=== PATIENT | female | born 1965 | race African-American/Black ===

== ENCOUNTER 2019-10-04 09:00 | Emergency (ER) | payer MEDICARE, MEDICAID ==
[~2019-10-04] VITALS: Ht 157.5 cm; Wt 116.3 kg
[~2019-10-04 09:00] MED LIST: HYDR-2679 PO; METF500T16 PO; [UNRECOGNIZED DRUG - REMARK]
[2019-10-04 09:06] VITALS: BP 136/105
[2019-10-04] MEDS ORDERED: DICL75TA PO (09:34)
--- NOTE | 2019-10-04 09:34 | PHYS DOC ---
Past Medical History Past Medical History: Diabetes-Type II, Hypertension, Other Additional Past Medical Histor: hiGG4 plasma Past Surgical History: Hysterectomy, Other Additional Past Surgical Histo: eye Smoking Status: Current Some Day Smoker Alcohol Use: Rarely Drug Use: None Adult General Chief Complaint Chief Complaint: SHOUDLER HPI HPI Patient is a 54 year old -[place] female with history of hypertension and asthma who presents secondary to complaint of left shoulder pain x3 days duration with some radiation from the periscapular region to the chest. Patient states that she has no inciting injury that she is aware of. Her pain is worse with movement and with lying on the left shoulder. She also reports similar symptoms 1 month ago after lifting heavy objects. This seemed to get better but did not completely resolved. She has tried home Flexeril and hydrocodone without relief. She denies shortness of breath. Pain is mild and worse with movement. Review of Systems Review of Systems All other systems were reviewed and found to be within normal limits, except as documented in this note. Allergies Allergies Allergies Coded Allergies Type Severity Reaction Last Updated Verified No Known Drug Allergies 07/28/14 No Physical Exam Physical Exam Constitutional: Well developed, well nourished, no acute distress, non-toxic appearance. [] HENT: Normocephalic, atraumatic, bilateral external ears normal, oropharynx moist, no oral exudates, nose normal. [] Eyes: PERRLA, EOMI, conjunctiva normal, no discharge. [] Neck: Normal range of motion, no tenderness, supple, no stridor. [] Cardiovascular:Heart rate regular rhythm, no murmur [] Lungs & Thorax: Bilateral breath sounds clear to auscultation [] Skin: Warm, dry, no erythema, no rash. [] Back: Tenderness palpation around the left periscapular region Extremities: Tenderness around the left shoulder diffusely but more so in the back., no cyanosis, no clubbing, ROM intact, no edema. [] Neurologic: Alert and oriented X 3, normal motor function, normal sensory function, no focal deficits noted. [] EKG EKG EKG shows a sinus rhythm with a heart rate of 84, normal intervals and no ST changes. [] Radiology/Procedures Radiology/Procedures [] Course & Med Decision Making Course & Med Decision Making Pertinent Labs and Imaging studies reviewed. (See chart for details) This patient is seen for ongoing left shoulder pain. Her EKG is unremarkable. Examination and history are consistent with likely muscle strain or rotator cuff injury. I will start the patient on an anti-inflammatory and she is to continue to take her home muscle relaxer and pain medication. She is also advised to follow-up with her primary care physician for possible MRI if symptoms do not resolve. Dragon Disclaimer Dragon Disclaimer This electronic medical record was generated, in whole or in part, using a voice recognition dictation system. Departure Departure Impression: Primary Impression: Left shoulder pain Disposition: HOME, SELF-CARE Condition: STABLE Referrals: RADHA LAGUNAS APRN (PCP) Please follow up for ongoing symptoms. Discuss possible MRI. Patient Instructions: Shoulder Pain Scripts Diclofenac Sodium (DICLOFENAC SODIUM) 75 Mg Tablet.dr 1 TAB PO BID for 10 Days, #20 TAB 1 Refill Prov: REED REED DO 10/04/19 REED REED DO Oct 04, 2019 09:34
--- NOTE | 2019-10-04 09:59 | EKG ---
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
== END 2019-10-04 09:39 | disposition home or self-care (01) ==
LOC: ER 09:00
DX: M25.512 Pain in left shoulder (principal); E11.9 Type 2 diabetes mellitus without complications; J45.909 Unspecified asthma, uncomplicated; I10 Essential (primary) hypertension; F17.200 Nicotine dependence, unspecified, uncomplicated; Z90.710 Acquired absence of both cervix and uterus; Z98.890 Other specified postprocedural states
CPT/HCPCS: 93005; 99283

== ENCOUNTER 2021-08-20 17:50 | Observation (INO) | payer MEDICAID, MEDICARE ==
[~2021-08-20] VITALS: Ht 157.5 cm; Wt 115.1 kg
[~2021-08-20 17:50] MED LIST changes: +DICL75TA PO
--- NOTE | 2021-08-20 18:12 | PHYS DOC ---
Past Medical History Past Medical History: Diabetes-Type II, Hypertension, Other Additional Past Medical Histor: hiGG4 plasma,SLEEP APNEA,CHRONIC BACK PAIN Past Surgical History: , Hysterectomy, Other Additional Past Surgical Histo: eye Smoking Status: Never Smoker Alcohol Use: Rarely Drug Use: None General Adult EDM: Chief Complaint: CHEST PAIN HPI: HPI: Patient is a 56-year-old female who presents to the emergency department today for left-sided chest pain that has been intermittent x1 week. Patient reports that the chest pain radiates to her arm and causes arm numbness occasionally. She rates her pain 8 out of 10. Chest pain is worse with deep inspiration and movement. Patient reports that she has had a nonproductive cough. She has a low-grade fever of 100. she is unable to describe the pain but states that it is "strong". No treatment prior to arrival. Patient is also reporting chronic right low back pain that radiates into her buttock. Patient reports that she has a bulging disc on the right side. She denies any injuries or falls, shortness of breath, nausea, vomiting, sick exposures. Review of Systems: Review of Systems: Constitutional: negative unless reported in HPI Eyes: negative unless reported in HPI HENT: negative unless reported in HPI Respiratory: negative unless reported in HPI Cardiovascular: negative unless reported in HPI GI: negative unless reported in HPI : negative unless reported in HPI Musculoskeletal: negative unless reported in HPI Integument: negative unless reported in HPI Neurologic: negative unless reported in HPI Endocrine: negative unless reported in HPI Lymphatic: negative unless reported in HPI Psychiatric: negative unless reported in HPI Heart Score: C/O Chest Pain: Yes HEART Score for Chest Pain: HEART Score for Chest Pain Response (Comments) Value History Slighlty/Non-Suspicious 0 ECG Nonspecific Repolarizatio 1 Age >45 - < 65 1 Risk Factors >3 Risk Factors or Hx CAD 2 Troponin < Normal Limit 0 Total 4 Risk Factors: Risk Factors: DM, Current or recent (<one month) smoker, HTN, HLP, family history of CAD, obesity. Risk Scores: Score 0 - 3: 2.5% MACE over next 6 weeks - Discharge Home Score 4 - 6: 20.3% MACE over next 6 weeks - Admit for Clinical Observation Score 7 - 10: 72.7% MACE over next 6 weeks - Early Invasive Strategies Allergies: Allergies: Allergies Uncoded Allergies Type Severity Reaction Last Updated Verified FLU VACCINE Allergy Unknown 08/20/21 Physical Exam: PE: Constitutional: Well developed, well nourished, no acute distress, non-toxic appearance. [] HENT: Normocephalic, atraumatic, bilateral external ears normal, oropharynx moist, no oral exudates, nose normal. [] Eyes: PERRL, EOMI, conjunctiva normal, no discharge. [] Neck: Normal range of motion, no stridor Cardiovascular:Heart rate regular rhythm, no murmur, upper left chest pain with palpation proximal to left shoulder [] Lungs & Thorax: Bilateral breath sounds clear to auscultation [] Abdomen: Bowel sounds normal, soft, no tenderness, no masses, obese, no pulsatile masses. [] Skin: Warm, dry, no erythema, no rash. [] Back: Normal range of motion, right lumbar paraspinal tenderness with palpation, positive right straight leg raise Extremities: No tenderness, no cyanosis, no clubbing, ROM intact, no edema. [] Neurologic: Alert and oriented X 3, normal motor function, normal sensory function, no focal deficits noted. [] Psychologic: Affect normal, judgement normal, mood normal. [] Current Patient Data: Labs: Laboratory Tests Test 08/20/21 18:05 08/20/21 18:30 White Blood Count 6.9 x10^3/uL Red Blood Count 4.69 x10^6/uL Hemoglobin 13.1 g/dL Hematocrit 40.1 % Mean Corpuscular Volume 86 fL Mean Corpuscular Hemoglobin 28 pg Mean Corpuscular Hemoglobin Concent 33 g/dL Red Cell Distribution Width 14.2 % Platelet Count 254 x10^3/uL Neutrophils (%) (Auto) 46 % Lymphocytes (%) (Auto) 46 % Monocytes (%) (Auto) 6 % Eosinophils (%) (Auto) 2 % Basophils (%) (Auto) 1 % Neutrophils # (Auto) 3.2 x10^3/uL Lymphocytes # (Auto) 3.2 x10^3/uL Monocytes # (Auto) 0.4 x10^3/uL Eosinophils # (Auto) 0.1 x10^3/uL Basophils # (Auto) 0.0 x10^3/uL Sodium Level 145 mmol/L Potassium Level 4.5 mmol/L Chloride Level 104 mmol/L Carbon Dioxide Level 28 mmol/L Anion Gap 13 Blood Urea Nitrogen 8 mg/dL Creatinine 0.6 mg/dL Estimated GFR (Cockcroft-Gault) 124.7 BUN/Creatinine Ratio 13 Glucose Level 134 mg/dL Calcium Level 9.4 mg/dL Total Bilirubin 0.4 mg/dL Aspartate Amino Transf (AST/SGOT) 16 U/L Alanine Aminotransferase (ALT/SGPT) 32 U/L Alkaline Phosphatase 113 U/L Troponin I High Sensitivity 4 ng/L Total Protein 8.0 g/dL Albumin 3.7 g/dL Albumin/Globulin Ratio 0.9 Influenza Type A Antigen Negative Influenza Type B Antigen Negative SARS-CoV-2 Antigen (Rapid) Negative Current Medications Medications (Trade) Dose Ordered Sig/Teo Route PRN Reason Start Time Stop Time Status Last Admin Dose Admin Aspirin (Aspirin Chewable) 324 mg 1X ONCE PO 08/20/21 18:15 08/20/21 18:16 DC 08/20/21 18:20 Morphine Sulfate (Morphine Sulfate) 2 mg 1X ONCE IVP 08/20/21 18:15 08/20/21 18:16 DC 08/20/21 18:18 Sodium Chloride 1,000 ml @ 1,000 mls/hr 1X ONCE IV 08/20/21 18:30 08/20/21 19:29 08/20/21 18:27 Morphine Sulfate (Morphine Sulfate) 4 mg 1X ONCE IVP 08/20/21 19:15 08/20/21 19:16 EKG: EKG: EKG performed by ER staff at 1757 shows sinus rhythm with a rate of 92, QTC of 423, no STEMI read by Dr. Cartagena. [] Radiology/Procedures: Radiology/Procedures: []PROCEDURE: PORTABLE CHEST 1V Exam: Chest one view INDICATION: Chest pain TECHNIQUE: Frontal view of the chest Comparisons: None FINDINGS: The cardiomediastinal silhouette and pulmonary vessels are within normal limits. The lung and pleural spaces are clear. IMPRESSION: No acute cardiopulmonary process. Electronically signed by: Jony Charles MD (08/20/2021 6:56 PM) [facility] DICTATED and SIGNED BY: JONY CHARLES MD DATE: 08/20/21 [id number] 0 PROCEDURE: CT ANGIOGRAPHY CHEST Examination: CT angiography chest with IV contrast HISTORY: History of chest pain, fever COMPARISON: None available TECHNIQUE: Axial CT angiographic images of chest were performed with IV contrast. Coronal and sagittal 3-D MIP reformats are performed Exposure: One or more of the following individualized dose reduction techniques were utilized for this examination: 1. Automated exposure control 2. Adjustment of the mA and/or kV according to patient size 3. Use of iterative reconstruction technique FINDINGS: The visualized central airways are patent. The ascending aorta measures 2.8 cm in transverse dimension. There is not enough contrast within the pulmonary artery and its branches for evaluation of pulmonary embolism. Mild aortic atherosclerosis. Mild bibasilar lung atelectasis. The visualized liver, spleen, adrenals grossly appears unremarkable Moderate degenerative changes thoracic spine. IMPRESSION: 1. Nondiagnostic examination for evaluation of pulmonary embolism as there is not enough contrast within the pulmonary artery and its branches. 2. Mild bibasilar lung atelectasis. Electronically signed by: Vern Rees MD (08/20/2021 7:59 PM) [id number] DICTATED and SIGNED BY: VERN REES MD DATE: 08/20/[id number] 0 ROCEDURE: CT ANGIOGRAPHY CHEST CTA Chest with contrast: 10:42 PM Clinical History: Chest pain and fever repeat study due to poor timing of contrast. Axial helical images of the chest were obtained after the administration of 75 cc of IV Omnipaque 350 and timed appropriately for a pulmonary arterial study. Conventional axial reconstruction was performed in addition to coronal, sagittal and bilateral oblique MIP (maximum intensity projection). This study was ordered to detect possible pulmonary embolism. COMPARISON: 7:32 PM There are no filling defects to suggest pulmonary embolism. The more peripheral subsegmental pulmonary arteries are not well opacified limiting our sensitivity for small peripheral pulmonary emboli. The lungs and pleural margins are clear. There is no mediastinal or hilar lymphadenopathy. The thoracic aorta appears normal. Impression: 1. No evidence of pulmonary embolism. 2. No significant findings. PQRS Compliance Statement: One or more of the following individualized dose reduction techniques were utilized for this examination: 1. Automated exposure control 2. Adjustment of the mA and/or kV according to patient size 3. Use of iterative reconstruction technique Electronically signed by: Micaela Cabrera III, MD (08/20/2021 11:08 PM) [facility] DICTATED and SIGNED BY: MICAELA CABRERA III, MD DATE: 08/20/[id number] 0 Course & Med Decision Making: Course & Med Decision Making Pertinent Labs and Imaging studies reviewed. (See chart for details) [] Patient presents to the emergency department for intermittent left-sided ch est pain proximal to her shoulder x1 week. Patient does have a cough and a low- grade fever. She reports that she has an appointment with her doctor because they believe that this pain that she is experiencing in her arm is due to her neck pain. Patient is also reporting chronic right low back pain that radiates into her buttock. Patient reports she has a history of a bulging disc. Work-up in the ER consisted of blood work, EKG, chest x-ray. Patient treated with aspirin, nitro and pain medication. Fever treated with tylenol and she was given IV fluids. Patient's vital signs are stable. 1900: Following pain medication in the emergency department, patient reports that her l. sided chest pain and arm pain has resolved. Blood work unremarkable, no elevation in troponin. EKG shows nonspecific changes. CXR shows no acute findings. Rapid influenza and covid test negative. I discussed patients case with supervising physician and she advised a CTA of chest to rule out PE due to chest pain and low grade fever as well as tachycardia. Patients heart score is 4 and will require admission to the hospital for serial troponins and cardiology consultation. CTA was non diagnostic therefore, patient was hydrated and it will be repeated. Supervising physician advised for treatment for PE with lovenox. I discussed patients findings with Dr. Durbin and he will admit the patient under his services for chest pain obs. I discussed these findings with patient and she is agreeable to care plan. ER bridge orders placed 2032. Maria Luisa Disclaimer: Maria Luisa Disclaimer: This electronic medical record was generated, in whole or in part, using a voice recognition dictation system. Departure Departure Impression: Primary Impression: Chest pain Qualified Codes: R07.9 - Chest pain, unspecified Disposition: ADMITTED INPATIENT Admitting Physician: DELORIS Condition: STABLE Referrals: RADHA LAGUNAS APRN (PCP) DAISY MCCLELLADN APRN Aug 20, 2021 18:12
[2021-08-20] MEDS ORDERED: ASPIRIN CHEWABLE 81 MG TABLET. PO ONE (18:15)
[2021-08-20] MEDS ORDERED: MORPHINE SULFATE 2 MG/ML INJ. IVP ONE (18:15)
[2021-08-20 18:19] LABS: BASO % 1 % (0-3); EOS # 0.1 x10^3/uL (0.0-0.7); EOS % 2 % (0-3); HEMATOCRIT 40.1 % (36.0-47.0); HEMOGLOBIN 13.1 g/dL (12.0-15.5); LYMPH # 3.2 x10^3/uL (1.0-4.8); LYMPH % 46 % (24-48); MEAN CORPUSCULAR HEMOGLOBIN 28 pg (25-35); MEAN CORPUSCULAR HGB CONC 33 g/dL (31-37); MEAN CORPUSCULAR VOLUME 86 fL (79-100); MONO # 0.4 x10^3/uL (0.0-1.1); MONO % 6 % (0-9); NEUT # 3.2 x10^3/uL (1.8-7.7); NEUT % 46 % (31-73); PLATELET COUNT 254 x10^3/uL (140-400); RED BLOOD COUNT 4.69 x10^6/uL (3.50-5.40); RED CELL DISTRIBUTION WIDTH 14.2 % (11.5-14.5); WHITE BLOOD COUNT 6.9 x10^3/uL (4.0-11.0)
[2021-08-20 18:29] LABS: CALCIUM 9.4 mg/dL (8.5-10.1); CREATININE 0.6 mg/dL (0.6-1.0); GFR 124.7; POTASSIUM 4.5 mmol/L (3.5-5.1)
[2021-08-20] MEDS ORDERED: IV NORMAL SALINE 1000ML BAG 1,000 ML IV ONE ×2 (18:30→20:30)
[2021-08-20 18:35] LABS: ALBUMIN 3.7 g/dL (3.4-5.0); ALBUMIN/GLOBULIN RATIO 0.9 (1.0-1.7); TOTAL BILIRUBIN 0.4 mg/dL (0.2-1.0)
[2021-08-20 18:54] LABS: INFLUENZA A PATIENT NEGATIVE (NEGATIVE); INFLUENZA B PATIENT NEGATIVE (NEGATIVE)
--- NOTE | 2021-08-20 18:59 | RAD ---
Exam: Chest one view INDICATION: Chest pain TECHNIQUE: Frontal view of the chest Comparisons: None FINDINGS: The cardiomediastinal silhouette and pulmonary vessels are within normal limits. The lung and pleural spaces are clear. IMPRESSION: No acute cardiopulmonary process. Electronically signed by: Jony Villaseñor MD (08/20/2021 6:56 PM) [facility]
[2021-08-20] MEDS ORDERED: IOHEXOL 350 MG/ML 100 ML VIAL. IV ONE ×2 (19:15→23:00)
[2021-08-20] MEDS ORDERED: ACETAMINOPHEN 500 MG TABLET PO ONE (19:15)
[2021-08-20] MEDS ORDERED: NITROGLYCERIN SUBLINGUAL 0.4 MG BOTTLE OF 25. SL PRN (19:15)
[2021-08-20] MEDS ORDERED: MORPHINE SULFATE 4 MG/ML INJ. IVP ONE (19:15)
[2021-08-20] MEDS ORDERED: CONTRAST GIVEN. MC PRN (19:30)
--- NOTE | 2021-08-20 20:01 | RAD ---
Examination: CT angiography chest with IV contrast HISTORY: History of chest pain, fever COMPARISON: None available TECHNIQUE: Axial CT angiographic images of chest were performed with IV contrast. Coronal and sagitta l 3-D MIP reformats are performed Exposure: One or more of the following individualized dose reduction techniques were utilized for thi s examination: 1. Automated exposure control 2. Adjustment of the mA and/or kV according to patient size 3. Use of iterative reconstruction technique FINDINGS: The visualized central airways are patent. The ascending aorta measures 2.8 cm in transverse dimensio n. There is not enough contrast within the pulmonary artery and its branches for evaluation of pulmon farzad embolism. Mild aortic atherosclerosis. Mild bibasilar lung atelectasis. The visualized liver, spl een, adrenals grossly appears unremarkable Moderate degenerative changes thoracic spine. IMPRESSION: 1. Nondiagnostic examination for evaluation of pulmonary embolism as there is not enough contrast wi thin the pulmonary artery and its branches. 2. Mild bibasilar lung atelectasis. Electronically signed by: Vern Rees MD (08/20/2021 7:59 PM) [id number]
[2021-08-20] MEDS ORDERED: MORPHINE SULFATE 2 MG/ML INJ. IVP PRN (20:45)
[2021-08-20] MEDS ORDERED: ANTI-COAG MONITOR BY PHARMACY. MC PRN (22:00)
[2021-08-20 23:00] VITALS: BP 154/93
--- NOTE | 2021-08-20 23:10 | RAD ---
CTA Chest with contrast: 10:42 PM Clinical History: Chest pain and fever repeat study due to poor timing of contrast. Axial helical images of the chest were obtained after the administration of 75 cc of IV Omnipaque 350 and timed appropriately for a pulmonary arterial study. Conventional axial reconstruction was perfo rmed in addition to coronal, sagittal and bilateral oblique MIP (maximum intensity projection). This study was ordered to detect possible pulmonary embolism. COMPARISON: 7:32 PM There are no filling defects to suggest pulmonary embolism. The more peripheral subsegmental pulmonary arteries are not well opacified limiting our sensitivity f or small peripheral pulmonary emboli. The lungs and pleural margins are clear. There is no mediastinal or hilar lymphadenopathy. The thoracic aorta appears normal. Impression: 1. No evidence of pulmonary embolism. 2. No significant findings. PQRS Compliance Statement: One or more of the following individualized dose reduction techniques were utilized for this examinat ion: 1. Automated exposure control 2. Adjustment of the mA and/or kV according to patient size 3. Use of iterative reconstruction technique Electronically signed by: Colt Peña III, MD (08/20/2021 11:08 PM) [facility]
--- NOTE | 2021-08-21 00:28 | NUR ---
received from the ER. she has been having chest pain that radiates to her left arm down to he fingers that causes her hand and am to go numb.This pain awakens her at night. no shortness of breath. she does have a history of neck and back pain. she states that she has "2 disc out in her back" that causes numbness down her right leg. she uses a cane to ambulate.
[2021-08-21 01:00] LABS: BASO % 0 % (0-3); EOS # 0.1 x10^3/uL (0.0-0.7); EOS % 2 % (0-3); HEMATOCRIT 35.9 % (36.0-47.0); HEMOGLOBIN 11.3 g/dL (12.0-15.5); LYMPH # 3.6 x10^3/uL (1.0-4.8); LYMPH % 49 % (24-48); MEAN CORPUSCULAR HEMOGLOBIN 27 pg (25-35); MEAN CORPUSCULAR HGB CONC 32 g/dL (31-37); MEAN CORPUSCULAR VOLUME 86 fL (79-100); MONO # 0.4 x10^3/uL (0.0-1.1); MONO % 5 % (0-9); NEUT # 3.3 x10^3/uL (1.8-7.7); NEUT % 44 % (31-73); PLATELET COUNT 220 x10^3/uL (140-400); RED BLOOD COUNT 4.15 x10^6/uL (3.50-5.40); RED CELL DISTRIBUTION WIDTH 14.3 % (11.5-14.5); WHITE BLOOD COUNT 7.5 x10^3/uL (4.0-11.0)
[2021-08-21 01:27] LABS: ALBUMIN 3.1 g/dL (3.4-5.0); ALBUMIN/GLOBULIN RATIO 0.8 (1.0-1.7); CALCIUM 8.2 mg/dL (8.5-10.1); CREATININE 0.7 mg/dL (0.6-1.0); GFR 104.4; POTASSIUM 3.9 mmol/L (3.5-5.1); TOTAL BILIRUBIN 0.3 mg/dL (0.2-1.0)
--- NOTE | 2021-08-21 02:32 | EKG ---
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
[2021-08-21 03:00] VITALS: BP 126/72
[2021-08-21 07:00] VITALS: BP 116/83
[2021-08-21] MEDS ORDERED: DOCUSATE SODIUM 100 MG CAPSULE. PO PRN (09:15)
[2021-08-21] MEDS ORDERED: PROCHLORPERAZINE 10 MG/2 ML VIAL. IV PRN (09:15)
[2021-08-21] MEDS ORDERED: ONDANSETRON PF 4 MG/2 ML VIAL. IVP PRN (09:15)
[2021-08-21] MEDS ORDERED: ZOLPIDEM 5 MG TABLET. PO PRN (09:15)
[2021-08-21] MEDS ORDERED: ENOXAPARIN 40 MG/0.4 ML SYRINGE. SQ SCH (09:15)
[2021-08-21] MEDS ORDERED: LORazepam 0.5 MG TABLET PO PRN (09:15)
[2021-08-21] MEDS ORDERED: DEXTROSE 50% 25 GM / 50ML DISP.SYRIN. IV PRN (09:15)
[2021-08-21] MEDS ORDERED: SENNOSIDES 8.6 MG TABLET PO PRN (09:15)
[2021-08-21] MEDS ORDERED: diphenhydrAMINE HCL 25 MG CAPSULE PO PRN ×2 (09:15)
[2021-08-21] MEDS ORDERED: diphenhydrAMINE 50 MG/ML VIAL IVP PRN (09:15)
[2021-08-21] MEDS ORDERED: ACETAMINOPHEN 325 MG TABLET. PO PRN (09:15)
--- NOTE | 2021-08-21 09:16 | PDOC1 ---
History and Physical Date of Service: DOS: DATE: 08/21/21 TIME: 09:08 Chief Complaint: Chief Complain: Chest pain History of Present Illness: HPI: History obtained from discussion with the ED physician and chart review: 56-year-old female who presents to the emergency department today for left-sided chest pain that has been intermittent x1 week. Patient reports that the chest pain radiates to her arm and causes arm numbness occasionally. She rates her pain 8 out of 10. Chest pain is worse with deep inspiration and movement. Patient reports that she has had a nonproductive cough. She has a low-grade fever of 100. she is unable to describe the pain but states that it is "strong". No treatment prior to arrival. Patient is also reporting chronic right low back pain that radiates into her buttock. Patient reports that she has a bulging disc on the right side. She denies any injuries or falls, shortness of breath, nausea, vomiting, sick exposures. Past Medical/Surgical History: PMH/PSH: Past Medical History: Diabetes-Type II, Hypertension, IgG4 plasma,SLEEP APNEA,CHRONIC BACK PAIN Past Surgical History: , Hysterectomy, eye Allergies: Allergies: Coded Allergies: Influenza Virus Vaccines (Verified Allergy, Intermediate, 08/20/21) Family History: Family History: Reviewed with no relevant findings in the chart Social History: Social History: Smoking Status: Never Smoker Alcohol Use: Rarely Drug Use: None Current Medications: Current Medications Current Medications Aspirin (Aspirin Chewable) 324 mg 1X ONCE PO Last administered on 08/20/21at 18:20; Start 08/20/21 at 18:15; Stop 08/20/21 at 18:16; Status DC Morphine Sulfate (Morphine Sulfate) 2 mg 1X ONCE IVP Last administered on 08/20/21at 18:18; Start 08/20/21 at 18:15; Stop 08/20/21 at 18:16; Status DC Sodium Chloride 1,000 ml @ 1,000 mls/hr 1X ONCE IV Last administered on 08/20/21at 18:27; Start 08/20/21 at 18:30; Stop 08/20/21 at 19:29; Status DC Morphine Sulfate (Morphine Sulfate) 4 mg 1X ONCE IVP Last administered on 08/20/21at 19:14; Start 08/20/21 at 19:15; Stop 08/20/21 at 19:16; Status DC Nitroglycerin (Nitrostat) 0.4 mg PRN Q5MIN PRN SL CHEST PAIN; Start 08/20/21 at 19:15 Acetaminophen (Tylenol) 1,000 mg 1X ONCE PO ; Start 08/20/21 at 19:15; Stop 08/20/21 at 19:19; Status DC Iohexol (Omnipaque 350 Mg/ml) 100 ml 1X ONCE IV Last administered on 08/20/21at 19:42; Start 08/20/21 at 19:15; Stop 08/20/21 at 19:19; Status DC Info (CONTRAST GIVEN -- Rx MONITORING) 1 each PRN DAILY PRN MC SEE COMMENTS; Start 08/20/21 at 19:30; Stop 08/22/21 at 19:29 Sodium Chloride 1,000 ml @ 1,000 mls/hr 1X ONCE IV Last administered on 08/20/21at 21:11; Start 08/20/21 at 20:30; Stop 08/20/21 at 21:29; Status DC Morphine Sulfate (Morphine Sulfate) 2 mg PRN Q2HR PRN IVP PAIN; Start 08/20/21 at 20:45; Stop 08/21/21 at 20:44 Enoxaparin Sodium (Lovenox Per Pharmacy Prophylaxis Dosing) 1 each PRN DAILY PRN MC SEE COMMENTS; Start 08/20/21 at 21:45; Status UNV Enoxaparin Sodium (Lovenox Per Pharmacy Treatment Dosing) 1 each PRN DAILY PRN MC SEE COMMENTS; Start 08/20/21 at 21:45 Enoxaparin Sodium (Lovenox 120mg Syringe) 110 mg Q12HR SQ Last administered on 08/20/21at 22:32; Start 08/20/21 at 22:00 Info (Anti-Coagulation Monitoring By Pharmacy) 1 each PRN DAILY PRN MC PER PROTOCOL Last administered on 08/21/21at 01:46; Start 08/20/21 at 22:00 Iohexol (Omnipaque 350 Mg/ml) 75 ml 1X ONCE IV Last administered on 08/20/21at 22:47; Start 08/20/21 at 23:00; Stop 08/20/21 at 23:01; Status DC Active Scripts Active Diclofenac Sodium 75 Mg Tablet.dr 1 Tab PO BID 10 Days Reported [water pill "F"] Metformin Hcl 500 Mg Tablet 1 Tab PO BID Lortab 7.5-325 mg Tablet (Hydrocodone/Acetaminophen) 1 Each Tablet 1 Tab PO PRN Q6HRS PRN ROS: Review of Systems Review of System REVIEW OF SYSTEMS: GENERAL: Denies weakness SKIN: No bruising, hair changes or rashes. EYES: No blurred, double or loss of vision. NOSE AND THROAT: No history of nosebleeds, hoarseness or sore throat. HEART: No history of palpitations, chest pain or shortness of breath on exertion. LUNGS: Denies cough, hemoptysis, wheezing or shortness of breath. GASTROINTESTINAL: Denies changes in appetite, nausea, vomiting, diarrhea or constipation. GENITOURINARY: No history of frequency, urgency, hesitancy or nocturia. NEUROLOGIC: Denies history of numbness, tingling, or tremor. PSYCHIATRIC: No history of panic, anxiety or depression. ENDOCRINE: No history of heat or cold intolerance, polyuria or polydipsia. EXTREMITIES: Denies joint pain, pain on walking or stiffness. Physical Exam: Vital Signs: Vital Signs Date Time Temp Pulse Resp B/P (MAP) Pulse Ox O2 Delivery O2 Flow Rate FiO2 08/21/21 03:00 98.2 82 18 126/72 (90) 96 Room Air 98.2 Physcial Exam: General: Well developed, well nourished, no acute distress, well appearing HEENT: Pupils equally round and reactive to light, EOMI, no discharge, normal conjunctiva Neck: Supple, no nuchal rigidity, no JVD, trachea midline, no tenderness Cardiac: RRR, no murmurs, no gallops, no rubs Chest/Lungs: Tender to palpation in the left upper chest Abdomen: soft, non-distended, no guarding, no peritoneal signs, non-tender Back: No tenderness Extremities: no edema, pulses intact, non-tender,capillary refill <3 sec bilateral upper and lower extremities, Neuro: Alert and oriented x 4, no focal deficits, normal speech Labs: Labs: Laboratory Tests Test 08/20/21 18:05 08/20/21 18:30 08/20/21 21:32 08/21/21 00:30 White Blood Count 6.9 x10^3/uL (4.0-11.0) 7.5 x10^3/uL (4.0-11.0) Red Blood Count 4.69 x10^6/uL (3.50-5.40) 4.15 x10^6/uL (3.50-5.40) Hemoglobin 13.1 g/dL (12.0-15.5) 11.3 g/dL (12.0-15.5) Hematocrit 40.1 % (36.0-47.0) 35.9 % (36.0-47.0) Mean Corpuscular Volume 86 fL (79-100) 86 fL (79-100) Mean Corpuscular Hemoglobin 28 pg (25-35) 27 pg (25-35) Mean Corpuscular Hemoglobin Concent 33 g/dL (31-37) 32 g/dL (31-37) Red Cell Distribution Width 14.2 % (11.5-14.5) 14.3 % (11.5-14.5) Platelet Count 254 x10^3/uL (140-400) 220 x10^3/uL (140-400) Neutrophils (%) (Auto) 46 % (31-73) 44 % (31-73) Lymphocytes (%) (Auto) 46 % (24-48) 49 % (24-48) Monocytes (%) (Auto) 6 % (0-9) 5 % (0-9) Eosinophils (%) (Auto) 2 % (0-3) 2 % (0-3) Basophils (%) (Auto) 1 % (0-3) 0 % (0-3) Neutrophils # (Auto) 3.2 x10^3/uL (1.8-7.7) 3.3 x10^3/uL (1.8-7.7) Lymphocytes # (Auto) 3.2 x10^3/uL (1.0-4.8) 3.6 x10^3/uL (1.0-4.8) Monocytes # (Auto) 0.4 x10^3/uL (0.0-1.1) 0.4 x10^3/uL (0.0-1.1) Eosinophils # (Auto) 0.1 x10^3/uL (0.0-0.7) 0.1 x10^3/uL (0.0-0.7) Basophils # (Auto) 0.0 x10^3/uL (0.0-0.2) 0.0 x10^3/uL (0.0-0.2) Sodium Level 145 mmol/L (136-145) 143 mmol/L (136-145) Potassium Level 4.5 mmol/L (3.5-5.1) 3.9 mmol/L (3.5-5.1) Chloride Level 104 mmol/L (98-107) 105 mmol/L (98-107) Carbon Dioxide Level 28 mmol/L (21-32) 27 mmol/L (21-32) Anion Gap 13 (6-14) 11 (6-14) Blood Urea Nitrogen 8 mg/dL (7-20) 8 mg/dL (7-20) Creatinine 0.6 mg/dL (0.6-1.0) 0.7 mg/dL (0.6-1.0) Estimated GFR (Cockcroft-Gault) 124.7 104.4 BUN/Creatinine Ratio 13 (6-20) 11 (6-20) Glucose Level 134 mg/dL (70-99) 184 mg/dL (70-99) Calcium Level 9.4 mg/dL (8.5-10.1) 8.2 mg/dL (8.5-10.1) Total Bilirubin 0.4 mg/dL (0.2-1.0) 0.3 mg/dL (0.2-1.0) Aspartate Amino Transf (AST/SGOT) 16 U/L (15-37) 7 U/L (15-37) Alanine Aminotransferase (ALT/SGPT) 32 U/L (14-59) 25 U/L (14-59) Alkaline Phosphatase 113 U/L (46-116) 96 U/L (46-116) Troponin I High Sensitivity 4 ng/L (4-50) 4 ng/L (4-50) 4 ng/L (4-50) Total Protein 8.0 g/dL (6.4-8.2) 7.0 g/dL (6.4-8.2) Albumin 3.7 g/dL (3.4-5.0) 3.1 g/dL (3.4-5.0) Albumin/Globulin Ratio 0.9 (1.0-1.7) 0.8 (1.0-1.7) Influenza Type A Antigen Negative (NEGATIVE) Influenza Type B Antigen Negative (NEGATIVE) SARS-CoV-2 Antigen (Rapid) Negative (NEGATIVE) Test 08/21/21 08:51 Glucose (Fingerstick) 89 mg/dL (70-99) Laboratory Tests Test 08/20/21 18:05 08/20/21 18:30 08/20/21 21:32 08/21/21 00:30 White Blood Count 6.9 x10^3/uL (4.0-11.0) 7.5 x10^3/uL (4.0-11.0) Red Blood Count 4.69 x10^6/uL (3.50-5.40) 4.15 x10^6/uL (3.50-5.40) Hemoglobin 13.1 g/dL (12.0-15.5) 11.3 g/dL (12.0-15.5) Hematocrit 40.1 % (36.0-47.0) 35.9 % (36.0-47.0) Mean Corpuscular Volume 86 fL (79-100) 86 fL (79-100) Mean Corpuscular Hemoglobin 28 pg (25-35) 27 pg (25-35) Mean Corpuscular Hemoglobin Concent 33 g/dL (31-37) 32 g/dL (31-37) Red Cell Distribution Width 14.2 % (11.5-14.5) 14.3 % (11.5-14.5) Platelet Count 254 x10^3/uL (140-400) 220 x10^3/uL (140-400) Neutrophils (%) (Auto) 46 % (31-73) 44 % (31-73) Lymphocytes (%) (Auto) 46 % (24-48) 49 % (24-48) Monocytes (%) (Auto) 6 % (0-9) 5 % (0-9) Eosinophils (%) (Auto) 2 % (0-3) 2 % (0-3) Basophils (%) (Auto) 1 % (0-3) 0 % (0-3) Neutrophils # (Auto) 3.2 x10^3/uL (1.8-7.7) 3.3 x10^3/uL (1.8-7.7) Lymphocytes # (Auto) 3.2 x10^3/uL (1.0-4.8) 3.6 x10^3/uL (1.0-4.8) Monocytes # (Auto) 0.4 x10^3/uL (0.0-1.1) 0.4 x10^3/uL (0.0-1.1) Eosinophils # (Auto) 0.1 x10^3/uL (0.0-0.7) 0.1 x10^3/uL (0.0-0.7) Basophils # (Auto) 0.0 x10^3/uL (0.0-0.2) 0.0 x10^3/uL (0.0-0.2) Sodium Level 145 mmol/L (136-145) 143 mmol/L (136-145) Potassium Level 4.5 mmol/L (3.5-5.1) 3.9 mmol/L (3.5-5.1) Chloride Level 104 mmol/L (98-107) 105 mmol/L (98-107) Carbon Dioxide Level 28 mmol/L (21-32) 27 mmol/L (21-32) Anion Gap 13 (6-14) 11 (6-14) Blood Urea Nitrogen 8 mg/dL (7-20) 8 mg/dL (7-20) Creatinine 0.6 mg/dL (0.6-1.0) 0.7 mg/dL (0.6-1.0) Estimated GFR (Cockcroft-Gault) 124.7 104.4 BUN/Creatinine Ratio 13 (6-20) 11 (6-20) Glucose Level 134 mg/dL (70-99) 184 mg/dL (70-99) Calcium Level 9.4 mg/dL (8.5-10.1) 8.2 mg/dL (8.5-10.1) Total Bilirubin 0.4 mg/dL (0.2-1.0) 0.3 mg/dL (0.2-1.0) Aspartate Amino Transf (AST/SGOT) 16 U/L (15-37) 7 U/L (15-37) Alanine Aminotransferase (ALT/SGPT) 32 U/L (14-59) 25 U/L (14-59) Alkaline Phosphatase 113 U/L (46-116) 96 U/L (46-116) Troponin I High Sensitivity 4 ng/L (4-50) 4 ng/L (4-50) 4 ng/L (4-50) Total Protein 8.0 g/dL (6.4-8.2) 7.0 g/dL (6.4-8.2) Albumin 3.7 g/dL (3.4-5.0) 3.1 g/dL (3.4-5.0) Albumin/Globulin Ratio 0.9 (1.0-1.7) 0.8 (1.0-1.7) Influenza Type A Antigen Negative (NEGATIVE) Influenza Type B Antigen Negative (NEGATIVE) SARS-CoV-2 Antigen (Rapid) Negative (NEGATIVE) Test 08/21/21 08:51 Glucose (Fingerstick) 89 mg/dL (70-99) Images: Images Negative chest CTA PROCEDURE: PORTABLE CHEST 1V Exam: Chest one view INDICATION: Chest pain TECHNIQUE: Frontal view of the chest Comparisons: None FINDINGS: The cardiomediastinal silhouette and pulmonary vessels are within normal limits. The lung and pleural spaces are clear. IMPRESSION: No acute cardiopulmonary process. Assessment/Plan Assessment/Plan Problem List: Atypical chest pain, likely MSK, rule out ACS Morbid Obesity Hx of DM Hx of COREEN Hx of chronic back pain Hx of hypertension Hx of IgG4 Admit for observation with hospitalist service EKG showing no acute ST elevations, NSR with rate at 92 Troponin negative x3 Continue aspirin, consider Plavix if intermediate risk will defer this to cardiology Cardiology consulted for predischarge stress testing or left heart cath Continue nitroglycerin as needed for pain Continue beta-shiloh if blood pressures allow Continue high intensity statins IV morphine as needed Consider Lovenox Maintain O2 sats between 88 to 95% Trend troponins Repeat EKG in the a.m. Continue telemetry monitoring Monitor for electrolyte abnormalities Avoid NSAIDs Justifications for Admission Other Justification ARIANNA SAEED MD Aug 21, 2021 09:16
[2021-08-21] MEDS ORDERED: PANTOPRAZOLE 40 MG TABLET.DR. PO SCH (10:00)
--- NOTE | 2021-08-21 10:48 | PDOC2 ---
CARDIOLOGY CONSULT NOTE DATE OF SERVICE: DATE: 08/21/21 TIME: 10:28 CHIEF COMPLAINT: Chest Pain HPI: Ms Boykin is a 56 yo female that presented to the ER last night with chest pain that radiates to her left arm and makes it go "numb". Onset was a week ago, the pain comes and goes at times and is constant at times. Patient is currently feeling pain in the left upper chest and feels numb in her left arm. Rest makes the pain better any movement of her arm makes it worse. She take hydrocodone prn when she has pain which also makes it better. She also describes pain her left shoulder and neck. She has never had these symptoms before. She currently goes to a pain management clinic for her low back "disc bulge" and neck pain, she is scheduled to have a follow-up with them soon. Patient at baseline is able to walk on treadmill w/o problems. PMHX: HTN Diabetes mellitus type 2 IgG4 related disease Sleep apnea Chronic back pain SOCHX: Tobacco: Never smoked Alcohol: occasionally Recreational Drugs: None FAMHX: Family history notable for CAD CURRENT MEDS: Current Medications Medications (Trade) Dose Ordered Sig/Teo Route PRN Reason Start Time Stop Time Status Last Admin Dose Admin Aspirin (Aspirin Chewable) 324 mg 1X ONCE PO 08/20/21 18:15 08/20/21 18:16 DC 08/20/21 18:20 Morphine Sulfate (Morphine Sulfate) 2 mg 1X ONCE IVP 08/20/21 18:15 08/20/21 18:16 DC 08/20/21 18:18 Sodium Chloride 1,000 ml @ 1,000 mls/hr 1X ONCE IV 08/20/21 18:30 08/20/21 19:29 DC 08/20/21 18:27 Morphine Sulfate (Morphine Sulfate) 4 mg 1X ONCE IVP 08/20/21 19:15 08/20/21 19:16 DC 08/20/21 19:14 Iohexol (Omnipaque 350 Mg/ml) 100 ml 1X ONCE IV 08/20/21 19:15 08/20/21 19:19 DC 08/20/21 19:42 Sodium Chloride 1,000 ml @ 1,000 mls/hr 1X ONCE IV 08/20/21 20:30 08/20/21 21:29 DC 08/20/21 21:11 Morphine Sulfate (Morphine Sulfate) 2 mg PRN Q2HR PRN IVP PAIN 08/20/21 20:45 08/21/21 20:44 08/21/21 10:19 Enoxaparin Sodium (Lovenox 120mg Syringe) 110 mg Q12HR SQ 08/20/21 22:00 08/21/21 10:02 DC 08/20/21 22:32 Info (Anti-Coagulation Monitoring By Pharmacy) 1 each PRN DAILY PRN MC PER PROTOCOL 08/20/21 22:00 08/21/21 01:46 Iohexol (Omnipaque 350 Mg/ml) 75 ml 1X ONCE IV 08/20/21 23:00 08/20/21 23:01 DC 08/20/21 22:47 Enoxaparin Sodium (Lovenox 40mg Syringe) 40 mg Q24H SQ 08/21/21 09:15 08/21/21 10:06 Pantoprazole Sodium (Protonix) 40 mg DAILYAC PO 08/21/21 10:00 08/21/21 10:05 Home meds: Lortab - prn Lisinopril Amlodipine Potassium Furosemide Low dose Aspirin Metformin Flexeril ALLERGIES: Allergies Coded Allergies Type Severity Reaction Last Updated Verified Influenza Virus Vaccines Allergy Intermediate 08/20/21 Yes ROS: Negative for 10 out of 14 systems otherwise as stated above in HPI PHYSICAL EXAM: Vital Signs/I&O: Vital Signs Date Time Temp Pulse Resp B/P (MAP) Pulse Ox O2 Delivery O2 Flow Rate FiO2 08/21/21 10:19 99 Room Air 08/21/21 07:00 98.4 110 18 116/83 (94) 98.4 I & O 08/20/21 08/20/21 08/21/21 15:00 23:00 07:00 Intake Total 1000 ml 700 ml Balance 1000 ml 700 ml Physical Exam: GEN.: No apparent distress. Alert and oriented. HEENT: Head is normocephalic, atraumatic NECK: Supple. LUNGS: Clear to auscultation. HEART: RRR, S1, S2 present. Peripheral pulses intact ABDOMEN: Soft, nontender. Positive bowel sounds. EXTREMITIES: Without any cyanosis. MSK pain with abduction of left shoulder. TTP on left upper chest NEUROLOGIC: Normal speech, normal tone PSYCHIATRIC: Normal affect, normal mood. SKIN: No ulcerations DIAGNOSTIC TESTING: EKG unremarkable. Lab Laboratory Tests Test 08/20/21 18:05 08/20/21 18:30 08/20/21 21:32 08/21/21 00:30 White Blood Count 6.9 x10^3/uL (4.0-11.0) 7.5 x10^3/uL (4.0-11.0) Red Blood Count 4.69 x10^6/uL (3.50-5.40) 4.15 x10^6/uL (3.50-5.40) Hemoglobin 13.1 g/dL (12.0-15.5) 11.3 g/dL (12.0-15.5) L Hematocrit 40.1 % (36.0-47.0) 35.9 % (36.0-47.0) L Mean Corpuscular Volume 86 fL (79-100) 86 fL (79-100) Mean Corpuscular Hemoglobin 28 pg (25-35) 27 pg (25-35) Mean Corpuscular Hemoglobin Concent 33 g/dL (31-37) 32 g/dL (31-37) Red Cell Distribution Width 14.2 % (11.5-14.5) 14.3 % (11.5-14.5) Platelet Count 254 x10^3/uL (140-400) 220 x10^3/uL (140-400) Neutrophils (%) (Auto) 46 % (31-73) 44 % (31-73) Lymphocytes (%) (Auto) 46 % (24-48) 49 % (24-48) H Monocytes (%) (Auto) 6 % (0-9) 5 % (0-9) Eosinophils (%) (Auto) 2 % (0-3) 2 % (0-3) Basophils (%) (Auto) 1 % (0-3) 0 % (0-3) Neutrophils # (Auto) 3.2 x10^3/uL (1.8-7.7) 3.3 x10^3/uL (1.8-7.7) Lymphocytes # (Auto) 3.2 x10^3/uL (1.0-4.8) 3.6 x10^3/uL (1.0-4.8) Monocytes # (Auto) 0.4 x10^3/uL (0.0-1.1) 0.4 x10^3/uL (0.0-1.1) Eosinophils # (Auto) 0.1 x10^3/uL (0.0-0.7) 0.1 x10^3/uL (0.0-0.7) Basophils # (Auto) 0.0 x10^3/uL (0.0-0.2) 0.0 x10^3/uL (0.0-0.2) Sodium Level 145 mmol/L (136-145) 143 mmol/L (136-145) Potassium Level 4.5 mmol/L (3.5-5.1) 3.9 mmol/L (3.5-5.1) Chloride Level 104 mmol/L (98-107) 105 mmol/L (98-107) Carbon Dioxide Level 28 mmol/L (21-32) 27 mmol/L (21-32) Anion Gap 13 (6-14) 11 (6-14) Blood Urea Nitrogen 8 mg/dL (7-20) 8 mg/dL (7-20) Creatinine 0.6 mg/dL (0.6-1.0) 0.7 mg/dL (0.6-1.0) Estimated GFR (Cockcroft-Gault) 124.7 104.4 BUN/Creatinine Ratio 13 (6-20) 11 (6-20) Glucose Level 134 mg/dL (70-99) H 184 mg/dL (70-99) H Calcium Level 9.4 mg/dL (8.5-10.1) 8.2 mg/dL (8.5-10.1) L Total Bilirubin 0.4 mg/dL (0.2-1.0) 0.3 mg/dL (0.2-1.0) Aspartate Amino Transf (AST/SGOT) 16 U/L (15-37) 7 U/L (15-37) L Alkaline Phosphatase 113 U/L (46-116) 96 U/L (46-116) Troponin I High Sensitivity 4 ng/L (4-50) 4 ng/L (4-50) 4 ng/L (4-50) Total Protein 8.0 g/dL (6.4-8.2) 7.0 g/dL (6.4-8.2) Albumin 3.7 g/dL (3.4-5.0) 3.1 g/dL (3.4-5.0) L Albumin/Globulin Ratio 0.9 (1.0-1.7) L 0.8 (1.0-1.7) L Influenza Type A Antigen Negative (NEGATIVE) Influenza Type B Antigen Negative (NEGATIVE) SARS-CoV-2 Antigen (Rapid) Negative (NEGATIVE) Test 08/21/21 08:51 Glucose (Fingerstick) 89 mg/dL (70-99) Laboratory Tests 08/21/21 00:30 ASSESSMENT: 1. Non-cardiac chest pain 2. HTN 3. MSK pain PLAN: 1. Patient presenting with non-cardiac chest pain. EKG, trops and CTA are unremarkable. Consider evaluation by PMR 2. Outpt stress testing given risk factors if patient still has symptoms. BAO KAY MD Aug 21, 2021 10:48
[2021-08-21 11:00] VITALS: BP 144/72
--- NOTE | 2021-08-21 11:25 | DISCH ---
DISCHARGE INSTRUCTIONS Condition on Discharge Condition on Discharge: Stable Activity After Discharge Activity Instructions for Disc: Activity as tolerated Exercise Instruction after Dis: Walk 30 min, 5 x per week Driving Instructions after Dis: Do not drive today Weight Bearing Status after Di: Full weight bearing Diet after Discharge Diet after Discharge: Cardiac Follow-Up Follow up with: PCP within 2 weeks of discharge Follow Up With: Cardiology as needed. Pain clinic as needed ARIANNA SAEED MD Aug 21, 2021 11:25
[2021-08-21] MEDS ORDERED: INSULIN LISPRO 300 UNITS/3 ML VIAL. SQ SCH (12:00)
[2021-08-21] MEDS ORDERED: DICLOFENAC SODIUM 1% TOPICAL GEL 100GM TUBE. TP SCH (12:00)
[2021-08-21] MEDS ORDERED: LIDOCAINE (700MG/PATCH) PATCH. TD SCH (12:00)
[2021-08-21 15:00] VITALS: BP 124/67
--- NOTE | 2021-08-21 16:45 | NUR ---
Discharge Note: REINIER MCBRIDE [address] [place] [address] Discharge instructions and discharge home medications reviewed with Patient and a copy given. All questions have been answered and understanding verbalized. The following instructions and handouts were given: discharge instructions, CP education Discontinued lines and drains: Peripheral IV intact. Patient discharged to Home or Self Care with Family Member via Wheelchair at 1645.
[2021-08-21] MEDS ORDERED: PATCH REMOVAL. MC SCH (21:00)
--- NOTE | 2021-08-24 16:50 | PDOC3 ---
[facility]-Discharge Summary Date of Admission: Date of Admission: Aug 21, 2021 Date of Discharge: Date of Discharge: Aug 21, 2021 Discharge Diagnosis: Discharge Diagnosis: Atypical chest pain, likely MSK, rule out ACS Morbid Obesity Hx of DM Hx of COREEN Hx of chronic back pain Hx of hypertension Hx of IgG4 Consults: Consults: Per cardiology: ASSESSMENT: 1. Non-cardiac chest pain 2. HTN 3. MSK pain PLAN: 1. Patient presenting with non-cardiac chest pain. EKG, trops and CTA are unremarkable. Consider evaluation by PMR 2. Outpt stress testing given risk factors if patient still has symptoms. Hospital Course: Hospital Course: 56-year-old female who presents to the emergency department today for left-sided chest pain that has been intermittent x1 week. Patient reports that the chest pain radiates to her arm and causes arm numbness occasionally. She rates her pain 8 out of 10. Chest pain is worse with deep inspiration and movement. Patient reports that she has had a nonproductive cough. She has a low-grade fever of 100. she is unable to describe the pain but states that it is "strong". No treatment prior to arrival. Patient is also reporting chronic right low back pain that radiates into her buttock. Patient reports that she has a bulging disc on the right side. She denies any injuries or falls, shortness of breath, nausea, vomiting, sick exposures. Patient was devalued by cardiology and chest pain-free by time of discharge. See cardiology evaluation above. Rest of hospital course uneventful. Disposition: Disposition/Orders: D/C to Home Activity: Activity: Resume previous activity Diet: Diet: Cardiac Medications: Home Meds Active Scripts Diclofenac Sodium (DICLOFENAC SODIUM) 75 Mg Tablet., 1 TAB PO BID for 10 Days, #20 TAB 1 Refill Prov:REED REED DO 10/04/19 Reported Medications [water pill "F"] No Conflict Check 07/28/14 Metformin Hcl (METFORMIN HCL) 500 Mg Tablet, 1 TAB PO BID, #180 TAB 3 Refills 07/28/14 Hydrocodone/Acetaminophen (Lortab 7.5-325 mg Tablet) 1 Each Tablet, 1 TAB PO PRN Q6HRS PRN for PAIN, TAB 0 Refills 07/28/14 Scheduled Diclofenac Sodium (Diclofenac Sodium), 1 TAB PO BID Metformin Hcl (Metformin Hcl), 1 TAB PO BID, (Reported) Scheduled PRN Hydrocodone/Acetaminophen (Lortab 7.5-325 mg Tablet), 1 TAB PO PRN Q6HRS PRN for PAIN, (Reported) Miscellaneous Medications [water pill "F"], (Reported) Total Time: Total Time: Total time spent was 31 minutes in preparing scripts, discharge planning with SWI and RN and preparing this discharge summary Patient seen and examined on day of discharge. No acute abnormal findings. Justicifation of Admission Dx: Justifications for Admission: Justification of Admission Dx: Yes Angina: Symp at Rest ARIANNA SAEED MD Aug 24, 2021 16:50
== END 2021-08-21 16:45 | disposition home or self-care (01) ==
LOC: ER 17:50 → 6 SOUTH 20:41 → INTOOBSV 20:41
PROVIDERS: ADMIT Internal Medicine; ATTEND Internal Medicine
DX: R07.89 Other chest pain (principal); Z20.822 Contact with and (suspected) exposure to COVID-19; I10 Essential (primary) hypertension; E11.9 Type 2 diabetes mellitus without complications; E66.01 Morbid (severe) obesity due to excess calories; G47.30 Sleep apnea, unspecified; G89.29 Other chronic pain; M54.50 Low back pain, unspecified; J98.11 Atelectasis; Z90.710 Acquired absence of both cervix and uterus; Z98.891 History of uterine scar from previous surgery; Z79.899 Other long term (current) drug therapy; Z98.890 Other specified postprocedural states; Z79.82 Long term (current) use of aspirin; Z79.84 Long term (current) use of oral hypoglycemic drugs; Z68.42 Body mass index [BMI] 45.0-49.9, adult
CPT/HCPCS: 36415; 71045; 71275; 80053; 82962; 84484; 85025; 87428; 93005; 96361; 96372; 96374; 96376; 99285; G0378; J1650; J2270; J7030; Q9967; G0379